=== PATIENT | male | born 1955 | race Caucasian/White ===

== ENCOUNTER 2018-06-13 14:41 | Emergency (ER) | payer OTHER ==
[~2018-06-13] VITALS: Ht 177.8 cm; Wt 123.6 kg
[~2018-06-13 14:41] MED LIST: ADULT LOW DOSE81 M1 PO; LO-DOSE ASPIRIN81 M1 PO; NOHOMEMEDS; PERCOCET 5/31 TABLET PO; Percocet 5/325,Endoc PO
[2018-06-13] MEDS ORDERED: FLEXERIL10 MG PO (16:47)
[2018-06-13] MEDS ORDERED: MOTRIN800 MG PO (16:47)
[2018-06-13 17:01] VITALS: BP 142/87
== END 2018-06-13 17:02 | disposition home or self-care (01) ==
LOC: EME 14:41
DX: S63.115A Dislocation of metacarpophalangeal joint of left thumb, initial encounter (principal); S20.211A Contusion of right front wall of thorax, initial encounter; S40.811A Abrasion of right upper arm, initial encounter; W18.30XA Fall on same level, unspecified, initial encounter; Y93.89 Activity, other specified; Z23 Encounter for immunization
CPT/HCPCS: 71100; 73130; 99281; 99284